=== PATIENT | male | born 1990 | race African-American/Black ===

== ENCOUNTER 2020-09-14 18:45 | Emergency (ER) | payer OTHER ==
[~2020-09-14] VITALS: Ht 167.6 cm; Wt 78.0 kg
[~2020-09-14 18:45] MED LIST: IBUP-1636; LORA5TAB8; [UNRECOGNIZED DRUG - REMARK]
[2020-09-14 18:52] VITALS: BP 111/69
== END 2020-09-14 20:26 | disposition home or self-care (01) ==
LOC: ER 18:45
DX: U07.1 COVID-19 (principal); F12.10 Cannabis abuse, uncomplicated
CPT/HCPCS: 99283; C9803; U0003